=== PATIENT | male | born 1965 | race Caucasian/White ===

== ENCOUNTER 2017-04-28 20:04 | Emergency (ER) | payer BC ==
[2017-04-28] MEDS ORDERED: Clindamycin HCl 150 MG Cap PO ONE (20:05)
[2017-04-28] MEDS ORDERED: Clindamycin Phosphate 900 MG in Sodium Chloride 0.9% 100 ML IV ONE (20:10)
--- NOTE | 2017-04-28 20:15 | EDM.PDOC ---
ED HPI GENERAL MEDICAL PROBLEM - General Stated Complaint: STAPH INFECTION ON HAND, [id number] Time Seen by Provider: 04/28/17 20:11 Source of Information: Reports: Patient History Limitations: Reports: No Limitations - History of Present Illness INITIAL COMMENTS - FREE TEXT/NARRATIVE: has cracked fingers and left thumb started hurting and draining this am tonight hand is swollen. Left Hand Pain Score (Numeric/FACES): 7 - Related Data Allergies Allergy/AdvReac Type Severity Reaction Status Date / Time cephalexin [From Keflex] Allergy Hives Verified 04/28/17 20:17 Home Meds: Home Meds Aspirin 81 mg PO DAILY 06/09/16 [History] Past Medical History - Past Health History Medical/Surgical History: Denies Medical/Surgical History - Past Surgical History Musculoskeletal Surgical History: Reports: Arthroscopic Procedure Social & Family History - Family History Family Medical History: Noncontributory - Tobacco Use Smoking Status *Q: Never Smoker Second Hand Smoke Exposure: No - Caffeine Use Caffeine Use: Reports: Coffee, Soda - Alcohol Use Days Per Week of Alcohol Use: 5 Number of Drinks Per Day: 2 Total Drinks Per Week: 10 - Recreational Drug Use Recreational Drug Use: No - Living Situation & Occupation Occupation: Employed ED ROS GENERAL - Review of Systems Review Of Systems: ROS reveals no pertinent complaints other than HPI. ED EXAM, GENERAL - Physical Exam Exam: See Below Exam Limited By: No Limitations General Appearance: Alert, WD/WN, No Apparent Distress Ears: Hearing Grossly Normal Throat/Mouth: Normal Voice, No Airway Compromise Head: Atraumatic Neck: Non-Tender, Full Range of Motion Respiratory/Chest: No Respiratory Distress Cardiovascular: Regular Rate, Rhythm GI/Abdominal: Soft, Non-Tender Extremities: Other (left thumb tip infected red swollen spreading to hand dorsum and wrist, without lymphangitis, NV wnl) Neurological: Alert, Oriented, Normal Cognition, Normal Gait, No Motor/Sensory Deficits Psychiatric: Normal Affect, Normal Mood Skin Exam: Warm, Dry, Normal Color Lymphatic: No Adenopathy Course - Vital Signs Last Recorded V/S: Last Vital Signs Temp 36.8 C 04/28/17 20:12 Pulse 89 04/28/17 20:12 Resp 14 04/28/17 20:12 BP 150/91 H 04/28/17 20:12 Pulse Ox 98 04/28/17 20:12 - Orders/Labs/Meds Meds: Medications Discontinued Medications Generic Name Dose Route Start Last Admin Trade Name Jairon PRN Reason Stop Dose Admin Clindamycin Phosphate 900 mg/ 106 mls @ 200 mls/hr 04/28/17 20:10 04/28/17 20 :25 Sodium Chloride IV 04/28/17 20:41 200 mls/hr ONETIME ONE Administration - Re-Assessments/Exams Free Text/Narrative Re-Assessment/Exam: 04/28/17 20:55 Tx plan discussed with pt. Departure - Departure Time of Disposition: 21:00 Disposition: Home, Self-Care 01 Condition: Good Clinical Impression: Cellulitis Qualifiers: Site of cellulitis: extremity Site of cellulitis of extremity: finger Laterality: left Qualified Code(s): L03.012 - Cellulitis of left finger - Discharge Information Instructions: Cellulitis, Adult, [id number] Forms: ED Department Discharge Additional Instructions: 1) keep wound clean dry covered 2) recheck if looks worse rx given; clindamycin 150mg qid x 40
[2017-04-28] MEDS ORDERED: Clindamycin HCl 150 MG Cap ONE (20:58)
[2017-04-28 21:01] VITALS: BP 145/82
== END 2017-04-28 21:09 | disposition home or self-care (01) ==
LOC: EDSEX → DL.ED 20:04
DX: L03.012 Cellulitis of left finger (principal); Z79.82 Long term (current) use of aspirin
CPT/HCPCS: 96365; 99283; J7050; A9270-GY; S0077

== ENCOUNTER 2022-12-02 13:57 | Emergency (ER) | payer BC, OTHER ==
[2022-12-02] MEDS ORDERED: Lidocaine 1% 5 ML VIAL INJECT ONE (14:20)
[2022-12-02 15:01] VITALS: BP 148/88; PULSE 63
== END 2022-12-02 14:44 | disposition home or self-care (01) ==
LOC: DL.ED 13:57
DX: S61.032A Puncture wound without foreign body of left thumb without damage to nail, initial encounter (principal); Z88.1 Allergy status to other antibiotic agents; W45.8XXA Other foreign body or object entering through skin, initial encounter
CPT/HCPCS: 99282; 99283; J3490

== ENCOUNTER 2023-02-22 06:18 | Day surgery (SDC) | payer OTHER ==
[2023-02-22] MEDS ORDERED: Dextrose 5%-0.45% NaCl 1,000 ML IV SCH (06:30)
[2023-02-22] MEDS ORDERED: fentaNYL 100 MCG/2 ML SDV ONE (07:04)
[2023-02-22] MEDS ORDERED: Midazolam 1 MG/ML 2 ML SDV ONE (07:04)
[2023-02-22] MEDS ORDERED: fentaNYL 100 MCG/2 ML SDV IV ONE ×2 (07:32→07:33)
[2023-02-22] MEDS ORDERED: Midazolam 1 MG/ML 2 ML SDV IV ONE ×4 (07:33→07:39)
[2023-02-22 09:57] VITALS: BP 132/84; PULSE 59
== END 2023-02-22 10:10 | disposition home or self-care (01) ==
LOC: DL.ENDO 06:18
PROVIDERS: ATTEND Internal Medicine Gastroenterology
DX: Z12.11 Encounter for screening for malignant neoplasm of colon (principal); K57.30 Diverticulosis of large intestine without perforation or abscess without bleeding; Z80.0 Family history of malignant neoplasm of digestive organs; Z88.1 Allergy status to other antibiotic agents; Z98.890 Other specified postprocedural states
CPT/HCPCS: 45378; J2250; J3010; J7042